=== PATIENT | female | born 1935 | race Caucasian/White ===

== ENCOUNTER 2016-11-03 12:56 | Emergency (ER) | payer MEDICARE, OTHER ==
[~2016-11-03] VITALS: Ht 160 cm; Wt 80.0 kg
[2016-11-03 14:53] LABS: URINE BILIRUBIN - DIPSTICK NEGATIVE (NEGATIVE); URINE BLOOD DIPSTICK NEGATIVE (NEGATIVE); URINE CLARITY CLEAR; URINE COLOR YELLOW; URINE GLUCOSE - DIPSTICK NEGATIVE (NEGATIVE); URINE KETONE NEGATIVE (NEGATIVE); URINE LEUK ESTERASE NEGATIVE (NEGATIVE); URINE NITRITE - DIPSTICK NEGATIVE (Negative); URINE PROTEIN - DIPSTICK NEGATIVE (NEG-TRACE); URINE UROBILINOGEN - DIPSTICK 0.2 E.U./dL (0.2)
[2016-11-03 14:54] LABS: BARBITURATES NEGATIVE (NEGATIVE); COCAINE NEGATIVE (NEGATIVE); METHADONE NEGATIVE (NEGATIVE); OXCYCODONE NEGATIVE (NEGATIVE); TETRAHYDROCANNABIONOL NEGATIVE (NEGATIVE); TRICYLIC ANTIDEPRESSANTS NEGATIVE (NEGATIVE)
[2016-11-03 14:54] LABS: HEMATOCRIT 42.1 % (37.0-47.0); HEMOGLOBIN 14.6 g/dl (12.0-16.0); IMMATURE GRANULOCYTES 0.2 % (0.0-1.0); MEAN CELL VOLUME 97.7 fL CALC (80.0-100.0); MEAN CORPUSCULAR HGB 33.9 pG CALC (26.0-32.0); MEAN CORPUSCULAR HGB CONC 34.7 g/L CALC (32.0-36.0); NEUT# 2.7 thou/uL (2.00-7.15); RED BLOOD COUNT 4.31 mill/uL (4.20-5.60); RED CELL DISTRI WIDTH 11.3 % (11.5-15.5)
[2016-11-03 15:01] LABS: ACT PARTIAL THROMBO TIME 27.6 SECONDS (20.0-32.5); PROTHROMBIN TIME 10.6 SECONDS (9.0-12.5)
[2016-11-03 15:09] LABS: ALBUMIN 3.9 g/dL (3.2-5.0); ALKALINE PHOSPHATASE 72 u/l (38-126); ANION GAP 12 (6-22 (CALC)); BILIRUBIN, TOTAL 0.7 mg/dL (0.0-1.4); BUN 18 mg/dL (8-23); BUN/CREATININE RATIO 30 (12-20 (CALC)); CALCIUM 9.1 mg/dL (8.4-10.2); CARBON DIOXIDE 25 mmol/l (22-30); CHLORIDE 107 mmol/l (95-108); CREATININE 0.6 mg/dL (0.5-1.0); GFR > 60 ML/MIN (>=60 (CALC)); GFR FOR AFR.AMER. > 60 ML/MIN (>=60 (CALC)); GLUCOSE 97 mg/dL (82-115); POTASSIUM 4.1 mmol/l (3.5-5.1); SGOT/AST 32 u/l (9-36); SGPT/ALT 36 u/l (11-66); SODIUM 140 mmol/l (137-146); TOTAL PROTEIN 6.9 g/dL (6.3-8.2)
[2016-11-03 15:21] LABS: MYOGLOBIN 28 ng/mL (0 - 62)
[2016-11-03 17:45] VITALS: BP 142/70
== END 2016-11-03 17:45 | disposition short-term general hospital (02) ==
LOC: ED 12:56
PROVIDERS: Emergency Medicine
DX: G81.94 Hemiplegia, unspecified affecting left nondominant side (principal); R00.1 Bradycardia, unspecified

== ENCOUNTER 2017-01-29 09:36 | Inpatient (IN) | payer MEDICARE, OTHER ==
[~2017-01-29] VITALS: Ht 160 cm; Wt 83.1 kg
--- NOTE | 2017-01-29 09:51 | NUR ---
PT TAKEN TO ER ROOM 8 VIA WC, SON @ BEDSIDE.
[2017-01-29 10:35] LABS: HEMATOCRIT 41.8 % (37.0-47.0); HEMOGLOBIN 14.5 g/dl (12.0-16.0); IMMATURE GRANULOCYTES 0.4 % (0.0-1.0); MEAN CELL VOLUME 98.8 fL CALC (80.0-100.0); MEAN CORPUSCULAR HGB 34.3 pG CALC (26.0-32.0); MEAN CORPUSCULAR HGB CONC 34.7 g/L CALC (32.0-36.0); NEUT# 9.24 thou/uL (2.00-7.15); RED BLOOD COUNT 4.23 mill/uL (4.20-5.60); RED CELL DISTRI WIDTH 10.9 % (11.5-15.5)
[2017-01-29 10:52] LABS: ANION GAP 17 (6-22 (CALC)); BUN 14 mg/dL (8-23); BUN/CREATININE RATIO 20 (12-20 (CALC)); CARBON DIOXIDE 24 mmol/l (22-30); CHLORIDE 101 mmol/l (95-108); CREATININE 0.7 mg/dL (0.5-1.0); GFR > 60 ML/MIN (>=60 (CALC)); GFR FOR AFR.AMER. > 60 ML/MIN (>=60 (CALC)); GLUCOSE 141 mg/dL (82-115); POTASSIUM 4.1 mmol/l (3.5-5.1); SODIUM 139 mmol/l (137-146)
[2017-01-29 10:58] LABS: INFLUENZA A NONE DETECTED (NONE DETECT); INFLUENZA B NONE DETECTED (NONE DETECT)
--- NOTE | 2017-01-29 11:15 | NUR ---
TEMP RETAKEN, REMAINS 101.5, NOTIFIED. TYLENOL PO REQUESTED. VITAL SIGNS STABLE. PT ALERT/ORIENTED X3. SOME COUGHING AND YELLOWISH SPUTUM SPIT UP.
--- NOTE | 2017-01-29 12:38 | NUR ---
PT ASSISTED W/REPOSITIONING AND ADVISED OF WAIT TIME TO RELOCATE UPSTAIRS.
--- NOTE | 2017-01-29 12:45 | NUR ---
TEMP DOWN TO 98.6, ADVISED PT THAT SHE WOULD BE GOING TO MED SURG SOON EVERYTHING WAS READY. SON AT BEDSIDE
[2017-01-29] MEDS ORDERED: PREMARIN0.625 MG PO (12:52)
[2017-01-29] MEDS ORDERED: ATORVASTATIN CA20 MG PO (12:52)
[2017-01-29] MEDS ORDERED: METO25TAB PO (12:53)
[2017-01-29] MEDS ORDERED: XARELTO10 MG PO (12:54)
[2017-01-29] MEDS ORDERED: METHOCARBAMOL500 MG PO (12:55)
[2017-01-29] MEDS ORDERED: TRAMADOL HCL50 MG PO (12:55)
[2017-01-29] MEDS ORDERED: GLUCOSAMINE1000 M1 PO (12:56)
[2017-01-29] MEDS ORDERED: VIT (12:58)
--- NOTE | 2017-01-29 13:22 | NUR ---
REPORT GIVEN TO MED SURG FOR CONTINUOUS CARE
--- NOTE | 2017-01-29 13:25 | NUR ---
PT TO ROOM VIA WC ACCOMPANIED BY STAFF; AMBULATORY TO BED WITH STAND BY ASSIST; PT A/O X3; PT C/O COUGH AND NAUSEA X5 DAYS, COUGH WITH MODERATE AMOUNT OF GREEN PHLEGM; PT HAS CLEAR DRAINAGE FROM LEFT EYE; ORIENTED TO ROOM AND CALL SYSTEM; WILL CONTINUE TO MONITOR.
[2017-01-29 13:28] VITALS: BP 126/51
--- NOTE | 2017-01-29 13:34 | NUR ---
PT TAKEN TO FLOOR PER STRETCHER FOR CONTINUOUS CARE
--- NOTE | 2017-01-29 14:28 | NUR ---
O2 SAT ON RA 90%. PLACED ON 2L NC.
--- NOTE | 2017-01-29 15:00 | NUR ---
PT RESTING WITH EYES CLOSED; NO S/SX OF DISTRESS NOTED; CALL RUIZ WITHIN REACH; WILL CONTINUE TO MONITOR.
[2017-01-29 15:58] VITALS: BP 102/60
--- NOTE | 2017-01-29 17:37 | NUR ---
PT TOLERATING DIET WELL; IVF INFUSING WITHOUT DIFFICULTY; CALL RUIZ WITHIN REACH; WILL CONTINUE TO MONITOR.
[2017-01-29 19:35] VITALS: BP 98/57
[2017-01-29 19:40] VITALS: BP 123/76
--- NOTE | 2017-01-29 19:55 | NUR ---
BEDSIDE REPORT RECEIVED FROM GALINA LORENZO. PT SITTING UP IN BED. C/O MILD BURNING TO LOWER EXTREMITIES R/T PREVIOUS BACK SURGERIES AND MILD LOWER BACK PAIN. RESPIRATIONS EVEN AND UNLABORED ON ROOM AIR. OXGYEN AT BEDSIDE, PRN. OXYGEN SATURATION REMAINS ABOVE 90%. PT CONTINUES PRODUCTIVE COUGH WITH THICK GREEN SPUTUM. LEFT EYE IS REDDENED WITH THIN GREEN DRAINAGE. PLAN OF CARE DISCUSSED. PT ENCOURAGED TO VERBALIZE CONCERNS. STATES UNDERSTANDING. SAFETY MEASURES IN PLACE. CALL LIGHT SYSTEM REVIEWED AND IN REACH.
--- NOTE | 2017-01-30 | NUR ---
PT UP TO BSC TO VOID. DENIES PAIN CURRENTLY. SONATA GIVEN AT HS PER REQUEST TO HELP SLEEP. DECLINED MEDICATION FOR LEG AND BACK DISCOMFORT. PT HAS NO FURTHER REQUESTS AT THIS TIME. MEDICATION EFFECTIVE FOR COUGH. CALL LIGHT WITHIN REACH.
[2017-01-30 00:22] VITALS: BP 95/56
[2017-01-30 03:30] LABS: URINE BILIRUBIN - DIPSTICK NEGATIVE (NEGATIVE); URINE BLOOD DIPSTICK NEGATIVE (NEGATIVE); URINE COLOR YELLOW; URINE GLUCOSE - DIPSTICK NEGATIVE (NEGATIVE); URINE KETONE TRACE mg/dL (NEGATIVE); URINE LEUK ESTERASE TRACE (NEGATIVE); URINE NITRITE - DIPSTICK NEGATIVE (Negative); URINE PROTEIN - DIPSTICK NEGATIVE (NEG-TRACE); URINE SPECIFIC GRAVITY 1.025
[2017-01-30 03:49] LABS: URINE CLARITY CLEAR
--- NOTE | 2017-01-30 04:00 | NUR ---
PT UP TO BSC PRN. ASLEEP AT THIS TIME. NO SIGNS OF DISTRESS NOTED. RESPIRATIONS EVEN AND UNLABORED. NO CHANGES IN ASSESSMENT NOTED. SAFETY MEASURES IN PLACE. CALL LIGHT WITHIN REACH.
[2017-01-30 05:25] VITALS: BP 127/63
[2017-01-30 05:30] LABS: HEMATOCRIT 36.6 % (37.0-47.0); HEMOGLOBIN 12.6 g/dl (12.0-16.0); MEAN CELL VOLUME 98.9 fL CALC (80.0-100.0); MEAN CORPUSCULAR HGB 34.1 pG CALC (26.0-32.0); MEAN CORPUSCULAR HGB CONC 34.4 g/L CALC (32.0-36.0); RED BLOOD COUNT 3.7 mill/uL (4.20-5.60); RED CELL DISTRI WIDTH 10.7 % (11.5-15.5)
[2017-01-30 05:38] LABS: ANION GAP 14 (6-22 (CALC)); BUN 13 mg/dL (8-23); BUN/CREATININE RATIO 22 (12-20 (CALC)); CALCIUM 8.8 mg/dL (8.4-10.2); CARBON DIOXIDE 23 mmol/l (22-30); CHLORIDE 108 mmol/l (95-108); CREATININE 0.6 mg/dL (0.5-1.0); GFR > 60 ML/MIN (>=60 (CALC)); GFR FOR AFR.AMER. > 60 ML/MIN (>=60 (CALC)); GLUCOSE 107 mg/dL (82-115); SODIUM 141 mmol/l (137-146)
[2017-01-30 08:05] VITALS: BP 96/58
[2017-01-30 09:31] VITALS: BP 96/58
[2017-01-30] MEDS ORDERED: TESSALON PERLE100 MG PO (12:00)
[2017-01-30] MEDS ORDERED: LEVAQUIN750 MG PO (12:00)
[2017-01-30] MEDS ORDERED: PREDNISONE20 MG PO (12:01)
[2017-01-30] MEDS ORDERED: OFLOXACIN0.3 % OS (12:03)
--- NOTE | 2017-01-30 13:50 | NUR ---
Discharge instructions given. Patient verbalizes understanding of same. Discharged in stable condition via Wheelchair to Home with family. All belongings sent with pt.
== END 2017-01-30 13:45 | disposition home or self-care (01) | DRG 195 ==
LOC: ED 09:36 → ED-I 11:16 → ED 11:59 → MS2 12:00
PROVIDERS: Family Medicine; ADMIT Internal Medicine; ATTEND Internal Medicine
DX: J18.9 Pneumonia, unspecified organism (principal); H10.9 Unspecified conjunctivitis; I49.9 Cardiac arrhythmia, unspecified; M19.90 Unspecified osteoarthritis, unspecified site; Z79.01 Long term (current) use of anticoagulants; Z86.73 Personal history of transient ischemic attack (TIA), and cerebral infarction without residual deficits
CPT/HCPCS: J0692

== ENCOUNTER 2019-11-29 10:58 | Emergency (ER) | payer MEDICARE, OTHER ==
[~2019-11-29] VITALS: Ht 160 cm; Wt 100.0 kg
[~2019-11-29 10:58] MED LIST: ATORVASTATIN CA20 MG PO; GLUCOSAMINE1000 M1 PO; LEVAQUIN750 MG PO; METHOCARBAMOL500 MG PO; METO25TAB PO; OFLOXACIN0.3 % OS; PREDNISONE20 MG PO; PREMARIN0.625 MG PO; TESSALON PERLE100 MG PO; TRAMADOL HCL50 MG PO; VIT; XARELTO10 MG PO
[2019-11-29 11:37] LABS: HEMATOCRIT 41.2 % (37.0-47.0); HEMOGLOBIN 13.8 g/dl (12.0-16.0); IMMATURE GRANULOCYTES 0.4 % (0.0-5.0); MEAN CELL VOLUME 99.3 fL CALC (80.0-100.0); MEAN CORPUSCULAR HGB 33.3 pG CALC (26.0-32.0); MEAN CORPUSCULAR HGB CONC 33.5 g/dL CAL (32.0-36.0); NEUT# 5.34 thou/uL (2.00-7.15); RED BLOOD COUNT 4.15 mill/uL (4.20-5.60); RED CELL DISTRI WIDTH 11.1 % (11.5-15.5)
[2019-11-29 11:57] LABS: INTERNATIONAL NORMALIZED RATIO 3.3 RATIO (0.7-1.3); PROTHROMBIN TIME 31.1 SECONDS (9.0-12.5)
[2019-11-29 12:20] LABS: ALBUMIN 3.7 g/dL (3.2-5.0); ALKALINE PHOSPHATASE 66 u/l (38-126); ANION GAP 11 (6-22 (CALC)); BUN 16 mg/dL (8-23); BUN/CREATININE RATIO 24 (12-20 (CALC)); CARBON DIOXIDE 26 mmol/l (22-30); CHLORIDE 106 mmol/l (95-108); CREATININE 0.7 mg/dL (0.5-1.0); GFR > 60 ML/MIN (>=60 (CALC)); GFR FOR AFR.AMER. > 60 ML/MIN (>=60 (CALC)); POTASSIUM 4.2 mmol/l (3.5-5.1); SGOT/AST 33 u/l (9-36); SODIUM 139 mmol/l (137-146); TOTAL PROTEIN 6.3 g/dL (6.3-8.2)
[2019-11-29 12:23] LABS: BILIRUBIN, TOTAL 0.4 mg/dL (0.0-1.4)
[2019-11-29 14:35] VITALS: BP 148/92
== END 2019-11-29 14:35 | disposition home or self-care (01) ==
LOC: ED 10:58
PROVIDERS: Student in an Organized Health Care Education/Training Program
DX: S92.322A Displaced fracture of second metatarsal bone, left foot, initial encounter for closed fracture (principal); S92.332A Displaced fracture of third metatarsal bone, left foot, initial encounter for closed fracture; S92.342A Displaced fracture of fourth metatarsal bone, left foot, initial encounter for closed fracture; S80.212A Abrasion, left knee, initial encounter; S80.211A Abrasion, right knee, initial encounter; M25.532 Pain in left wrist; E78.5 Hyperlipidemia, unspecified; V86.49XA Person injured while boarding or alighting from other special all-terrain or other off-road motor vehicle, initial encounter; Y93.89 Activity, other specified; Y92.009 Unspecified place in unspecified non-institutional (private) residence as the place of occurrence of the external cause; Z79.01 Long term (current) use of anticoagulants; Z86.73 Personal history of transient ischemic attack (TIA), and cerebral infarction without residual deficits